=== PATIENT | female | born 1940 | race Caucasian/White ===

== ENCOUNTER 2019-01-05 13:00 | Emergency (ER) | payer MEDICARE ==
[~2019-01-05] VITALS: Ht 154.9 cm; Wt 66.2 kg
[2019-01-05] MEDS ORDERED: LEVSOD75 PO (13:21)
[2019-01-05] MEDS ORDERED: METF500 PO (13:21)
[2019-01-05] MEDS ORDERED: Zocor20 MG PO (13:22)
[2019-01-05] MEDS ORDERED: Lotensin Hct 21 EAC1 (13:22)
[2019-01-05] MEDS ORDERED: HYDCHL25 PO (13:23)
[2019-01-05 13:32] LABS: BASOPHILS ABSOLUTE AUTO 0.06 K/mm3 (0.00-0.23); BASOPHILS PERCENT AUTO 1 % (0-2); EOSINOPHILS ABSOLUTE AUTO 0.03 K/mm3 (0.00-0.68); EOSINOPHILS PERCENT AUTO 0 % (0-6); Hematocrit 37.9 % (33.0-51.0); Hemoglobin 12.6 g/dL (11.5-16.0); IMMATURE GRAN ABSOLUTE AUTO 0.05 K/mm3 (0.00-0.10); IMMATURE GRAN PERCENT AUTO 1 % (0-1); LYMPHOCYTES ABSOLUTE AUTO 2.16 K/mm3 (0.84-5.20); LYMPHOCYTES PERCENT AUTO 20 % (21-46); MONOCYTES ABSOLUTE AUTO 0.95 K/mm3 (0.16-1.47); MONOCYTES PERCENT AUTO 9 % (4-13); Mean Corpuscular HGB 28.7 pg (26.0-34.0); Mean Corpuscular HGB Conc 33.2 g/dL (31.5-36.5); Mean Corpuscular Volume 86 fL (80-100); Mean Platelet Volume 10.5 fL (9.1-12.4); NEUTROPHILS ABSOLUTE AUTO 7.78 K/mm3 (1.96-9.15); NEUTROPHILS PERCENT AUTO 71 % (41-73); Platelet Count 299 K/mm3 (150-400); RDW Coefficient Variation 15.2 % (11.7-14.2); RDW Standard Deviation 47.8 fL (35.1-46.3); Red Blood Cell Count 4.39 M/mm3 (3.80-5.20); White Blood Cell Count 11.03 K/mm3 (4.00-11.30)
[2019-01-05 13:51] LABS: Alanine Aminotransfer (ALT/SGP 16 U/L (12-78); Albumin, Blood 2.8 g/dL (3.4-5.0); Albumin/Globulin Ratio 0.8 (0.8-1.8); Alk Phos 80 U/L (50-136); Anion Gap 11 mmol/L (6-16); Aspartate Aminotrans (AST/SGOT 15 U/L (12-37); Bilirubin, Total 1.4 mg/dL (0.1-1.0); Blood Urea Nitrogen 14 mg/dL (8-24); Bun/Creatinine Ratio 28.7 (12.0-20.0); CO2, Blood 22 mmol/L (21-32); Calcium, Blood 8.3 mg/dL (8.5-10.1); Chloride, Blood 106 mmol/L (98-108); Creatinine, Blood 0.49 mg/dL (0.40-1.00); Globulin, Blood 3.4 g/dL (2.2-4.0); Glomerular Filtration Rate >60 (60-); Glucose, Blood 141 mg/dL (70-99); Potassium, Blood 3.2 mmol/L (3.5-5.5); Sodium, Blood 139 mmol/L (136-145); Total Protein, Blood 6.2 g/dL (6.4-8.2)
[2019-01-05 14:23] LABS: Source, Urine Catheter
[2019-01-05 14:48] LABS: Appearance, Urine Hazy (Clear); Blood, Urine 4+ (Neg); Color, Urine Amber (P-Yellow); Glucose Qualitative, Urine Neg (Neg); Ketones, Urine 2+ (Neg); Leukocyte Esterase, Urine 1+ (Neg); Nitrite, Urine Pos (Neg); Protein, Urine 4+ (Neg); Specific Gravity, Urine 1.025 (1.003-1.022); Urobilinogen, Urine 4+ (Normal)
[2019-01-05 15:10] LABS: Bilirubin, Urine 2+ (Neg)
[2019-01-05 15:11] LABS: Bacteria Many /hpf; Squamous Epithelial Cells Few /hpf (Few)
[2019-01-05] MEDS ORDERED: CEPH500 PO (15:36)
[2019-01-05] MEDS ORDERED: POTA20PAC PO (15:36)
[2019-01-05] MEDS ORDERED: ONDA4ODT MM (15:36)
[2019-01-05] MEDS ORDERED: Protonix40 MG PO (15:40)
== END 2019-01-05 16:16 | disposition home or self-care (01) ==
LOC: ER 13:00
PROVIDERS: Emergency Medicine
DX: K29.70 Gastritis, unspecified, without bleeding (principal); N39.0 Urinary tract infection, site not specified; E87.6 Hypokalemia; Z79.899 Other long term (current) drug therapy; Z79.84 Long term (current) use of oral hypoglycemic drugs
CPT/HCPCS: 76705; 80053; 81001; 83690; 85025; 87077; 87086; 87186; 93005; 93010; 99284-25; P9612

== ENCOUNTER 2019-01-12 12:19 | Observation (INO) | payer MEDICARE ==
[~2019-01-12] VITALS: Ht 157.5 cm; Wt 81.7 kg
[~2019-01-12 12:19] MED LIST: CEPH500 PO; HYDCHL25 PO; LEVSOD75 PO; Lotensin Hct 21 EAC1; METF500 PO; ONDA4ODT MM; POTA20PAC PO; Protonix40 MG PO; Zocor20 MG PO
[2019-01-12 12:45] LABS: Calcium, Ionized (POC) 1.03 mmol/L (1.10-1.46); Chloride (POC) 104 mmol/L (98-108); Glucose (ISTAT POC) 31 mg/dL (70-99); Hemoglobin (POC) 15.3 g/dL (12.0-16.0); Potassium (POC) 4.7 mmol/L (3.5-5.5); Sodium (POC) 131 mmol/L (135-148); Total CO2 (POC) 11 mmol/L (21-32)
[2019-01-12 12:58] LABS: BASOPHILS ABSOLUTE AUTO 0.03 K/mm3 (0.00-0.23); BASOPHILS PERCENT AUTO 0 % (0-2); EOSINOPHILS ABSOLUTE AUTO 0.01 K/mm3 (0.00-0.68); EOSINOPHILS PERCENT AUTO 0 % (0-6); Hematocrit 42.2 % (33.0-51.0); IMMATURE GRAN ABSOLUTE AUTO 0.15 K/mm3 (0.00-0.10); IMMATURE GRAN PERCENT AUTO 2 % (0-1); LYMPHOCYTES ABSOLUTE AUTO 1.18 K/mm3 (0.84-5.20); LYMPHOCYTES PERCENT AUTO 13 % (21-46); MONOCYTES ABSOLUTE AUTO 0.46 K/mm3 (0.16-1.47); MONOCYTES PERCENT AUTO 5 % (4-13); Mean Corpuscular HGB 27.8 pg (26.0-34.0); Mean Corpuscular HGB Conc 30.8 g/dL (31.5-36.5); Mean Platelet Volume 10.8 fL (9.1-12.4); NEUTROPHILS ABSOLUTE AUTO 7.44 K/mm3 (1.96-9.15); NEUTROPHILS PERCENT AUTO 80 % (41-73); NRBC ABSOLUTE 0.02 K/mm3 (0.00-0.02); NRBC Auto 0.2 /100 WBC (0.0-0.2); Platelet Count 303 K/mm3 (150-400); RDW Coefficient Variation 16.3 % (11.7-14.2); RDW Standard Deviation 53.2 fL (35.1-46.3); Red Blood Cell Count 4.67 M/mm3 (3.80-5.20); White Blood Cell Count 9.27 K/mm3 (4.00-11.30)
[2019-01-12 13:02] LABS: Mean Corpuscular Volume 90 fL (80-100)
[2019-01-12 13:11] LABS: International Normalized Ratio 1.53; Prothrombin Time Results 15.6 Sec (9.7-11.5)
[2019-01-12] MEDS ORDERED: BENA20 PO (13:13)
[2019-01-12] MEDS ORDERED: HYDCHL25 PO (13:15)
[2019-01-12 13:38] LABS: Alanine Aminotransfer (ALT/SGP 23 U/L (12-78); Albumin, Blood 2.4 g/dL (3.4-5.0); Albumin/Globulin Ratio 0.6 (0.8-1.8); Alk Phos 102 U/L (50-136); Anion Gap 26 mmol/L (6-16); Aspartate Aminotrans (AST/SGOT 84 U/L (12-37); Bilirubin, Total 1.8 mg/dL (0.1-1.0); Blood Urea Nitrogen 27 mg/dL (8-24); Bun/Creatinine Ratio 29.1 (12.0-20.0); CO2, Blood 9 mmol/L (21-32); Calcium, Blood 8.6 mg/dL (8.5-10.1); Chloride, Blood 101 mmol/L (98-108); Creatinine, Blood 0.93 mg/dL (0.40-1.00); Globulin, Blood 3.9 g/dL (2.2-4.0); Glomerular Filtration Rate >60 (60-); Glucose, Blood 29 mg/dL (70-99); Potassium, Blood 4.8 mmol/L (3.5-5.5); Sodium, Blood 136 mmol/L (136-145); Total Protein, Blood 6.3 g/dL (6.4-8.2)
--- NOTE | 2019-01-12 16:05 | NUR ---
Visited Pt and family while in ED. Pt is resting on gurney upon arrival. Pt appears dyspneic as evidenced by labored breathing and respiration rate of 28/min. Pt also appears anxious and agitated as evidenced by several attempts to disrobe and constant movement of her hands. PAINAD score of 4/10 due to anxiety and labored breathing. Pt's niece Zaira Rivera and Jennifer are at bedside. Discussed plan and family is agreeable. Zaira Rivera reports goals are for Pt to remain comfortable. Discussed importance of discussing prognosis with other family members in case of the need to visit. Family reports no other concerns at this time. Spoke with bedside nurse, discussed case and reviewed comfort medications. Placed comfort care order and comfort care order set per V/O from Dr Palacio. Palliative Care will remain available for symptom management.
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
[2019-01-12] MEDS ORDERED: Aspir 8181 MG PO (16:40)
--- NOTE | 2019-01-12 17:00 | NUR ---
SHE ARRIVED AT [facility] FROM THE ER ABOUT 1610. HER NIECE WAS WITH HER. HER NEPHEW AND SON ALSO ARRIVED LATER. I GAVE LORAZEPAM 0.5 MG ONCE FOR COMFORT. SHE RECEIVED 1 MG OF MORPHINE IN THE ER BUT BREATHING WAS STILL LABORED. WHILE THE FAMILY WERE VISITING AMONGST THEMSELVES, KP . I WAS IN THE ROOM STARTING THE ADMISSION PROCESS. I FOUND HER TO HAVE NO RESPIRATIONS OR PULSE. HER NIECE AND OTHER FAMILY MEMBERS HAVE SINCE GONE HOME. HER NIECE WILL CALL IN THE MORTARY INFORMATION. BELONGINGS WENT WITH HER NIECE.
--- NOTE | 2019-01-12 18:47 | NUR ---
DISCHARGED TO [facility].
== END 2019-01-12 16:40 ==
LOC: ER 12:19 → MEDS 14:36
PROVIDERS: Emergency Medicine; ADMIT Family Medicine
DX: I26.99 Other pulmonary embolism without acute cor pulmonale (principal); R40.20 Unspecified coma; E03.9 Hypothyroidism, unspecified; I10 Essential (primary) hypertension; E11.9 Type 2 diabetes mellitus without complications; K21.9 Gastro-esophageal reflux disease without esophagitis; J44.9 Chronic obstructive pulmonary disease, unspecified; Z66 Do not resuscitate; Z87.891 Personal history of nicotine dependence; Z79.899 Other long term (current) drug therapy; Z79.84 Long term (current) use of oral hypoglycemic drugs
CPT/HCPCS: 31500; 31720; 70450; 71045; 71260; 80047; 80053; 83880; 84484; 85014; 85025; 85610; 93005; 93010; 94002; 96374-59; 96375; 96375-59; 99291-25; 99292; G0378; J0330; J2060; J2270; J2704; J3010; J7030; J7799; Q9967